=== PATIENT | male | born 1945 | race African-American/Black ===

== ENCOUNTER 2017-06-28 23:45 | Emergency (ER) | END 2017-06-29 06:28 | disposition home or self-care (01) ==

== ENCOUNTER 2017-07-09 14:45 | Emergency (ER) | END 2017-07-09 18:11 | disposition home or self-care (01) ==

== ENCOUNTER 2017-07-27 10:37 | Emergency (ER) | END 2017-07-27 16:56 | disposition home or self-care (01) ==

== ENCOUNTER 2018-05-07 10:33 | Emergency (ER) | payer OTHER ==
[~2018-05-07] VITALS: Ht 175.3 cm; Wt 85.0 kg
[2018-05-07 10:33] VITALS: Ht 175.3 cm; Wt 85.0 kg
[~2018-05-07 10:33] MED LIST: ALLO100T PO; NAPR-985 PO; OXYC40TA26 PO
[2018-05-07] MEDS ORDERED: HYDROCODONE/APAP (5/325) TAB PO ONE (12:00)
[2018-05-07] MEDS ORDERED: HYDROCODONE/APAP (10/325) TAB PO ONE ×3 (13:00→22:30)
--- NOTE | 2018-05-07 14:28 | ERD ---
ER Documentation Chief Complaint Chief Complaint Patient SUMAN with complaint of severe back pain MD at bedside for eval. HPI 72-year-old male with a history of chronic back pain, with spinal fusion surgery in the past, who presents with acute on chronic back pain as well as suicidal ideations. Patient states that his back pain is chronic and unchanged with no new neurologic deficits, however he has been feeling suicidal for the last several days, with thoughts of shooting himself in the head. He is currently not on any psychiatric medications. ROS All systems reviewed and are negative except as per history of present illness. Medications Home Meds Active Scripts Naproxen* (Naprosyn*) 500 Mg Tablet, 500 MG PO BID PRN for PAIN AND/OR INFLAMMATION, #30 TAB Prov:HUMBERTO MIGUEL MD 07/27/17 Reported Medications Allopurinol* (Allopurinol*) 100 Mg Tablet, 100 MG PO TID, TAB 07/27/17 Oxycodone Hcl* (Oxycontin*) 40 Mg Tab.er.12h, 40 MG PO Q12, TAB 07/27/17 Allergies Allergies: Coded Allergies: No Known Allergy (Unverified , 06/29/17) PMhx/Soc History of Surgery: Yes (multiple back surgeries) Anesthesia Reaction: No Hx Neurological Disorder: Yes (MUSCLE WEAKNESS W/C DEPENDENT) Hx Respiratory Disorders: No Hx Cardiac Disorders: Yes (HTN) Hx Psychiatric Problems: Yes (depression) Hx Miscellaneous Medical Probl: No (gout) Hx Alcohol Use: No Hx Substance Use: No Hx Tobacco Use: Yes Physical Exam Vitals Vital Signs Date Temp Pulse Resp B/P (MAP) Pulse Ox O2 O2 Flow FiO2 Time Delivery Rate 05/07/18 97.5 91 16 123/90 98 Room Air 12:14 (101) 05/07/18 98.3 98 20 138/86 98 10:33 (103) Physical Exam Const: No acute distress Head: Atraumatic Eyes: Normal Conjunctiva ENT: Normal External Ears, Nose and Mouth. Neck: Full range of motion. No meningismus. Resp: Clear to auscultation bilaterally Cardio: Regular rate and rhythm, no murmurs Abd: Soft, non tender, non distended. Normal bowel sounds Skin: No petechiae or rashes Back: No midline or flank tenderness, no step-off Ext: No cyanosis, or edema Neur: Awake and alert, strength 5 out of 5 in all extremity Psych: Normal Mood and Affect Result Diagram: 05/07/18 1106 05/07/18 1106 Results 24 hrs Laboratory Tests Test 05/07/18 11:06 05/07/18 13:30 White Blood Count 4.5 10^3/ul Red Blood Count 4.71 10^6/ul Hemoglobin 13.1 g/dl Hematocrit 42.8 % Mean Corpuscular Volume 90.9 fl Mean Corpuscular Hemoglobin 27.8 pg Mean Corpuscular Hemoglobin Concent 30.6 g/dl Red Cell Distribution Width 15.1 % Platelet Count 276 10^3/UL Mean Platelet Volume 10.3 fl Immature Granulocytes % 0.200 % Neutrophils % 49.9 % Lymphocytes % 34.1 % Monocytes % 9.8 % Eosinophils % 5.3 % Basophils % 0.7 % Nucleated Red Blood Cells % 0.0 /100WBC Immature Granulocytes # 0.010 10^3/ul Neutrophils # 2.2 10^3/ul Lymphocytes # 1.5 10^3/ul Monocytes # 0.4 10^3/ul Eosinophils # 0.2 10^3/ul Basophils # 0.0 10^3/ul Nucleated Red Blood Cells # 0.0 10^3/ul Sodium Level 144 mmol/L Potassium Level 3.4 mmol/L Chloride Level 105 mmol/L Carbon Dioxide Level 29 mmol/L Anion Gap 10 Blood Urea Nitrogen 15 mg/dl Creatinine 0.95 mg/dl Est Glomerular Filtrat Rate mL/min > 60 mL/min Glucose Level 111 mg/dl Calcium Level 9.8 mg/dl Total Bilirubin 0.0 mg/dl Direct Bilirubin 0.00 mg/dl Indirect Bilirubin 0.0 mg/dl Aspartate Amino Transf (AST/SGOT) 19 IU/L Alanine Aminotransferase (ALT/SGPT) < 6 IU/L Alkaline Phosphatase 59 IU/L Total Protein 7.7 g/dl Albumin 4.1 g/dl Globulin 3.60 g/dl Albumin/Globulin Ratio 1.13 Salicylates Level < 1.0 mg/dl Acetaminophen Level < 10.0 ug/ml Ethyl Alcohol Level < 10.0 mg/dl Urine Color YELLOW Urine Clarity CLEAR Urine pH 5.0 Urine Specific [place] 1.018 Urine Ketones NEGATIVE mg/dL Urine Nitrite NEGATIVE mg/dL Urine Bilirubin NEGATIVE mg/dL Urine Urobilinogen NEGATIVE mg/dL Urine Leukocyte Esterase NEGATIVE Johnny/ul Urine Microscopic RBC 3 /HPF Urine Microscopic WBC 0 /HPF Urine Hemoglobin 1+ mg/dL Urine Glucose NEGATIVE mg/dL Urine Total Protein NEGATIVE mg/dl Urine Opiates Screen Positive Urine Barbiturates Negative Urine Amphetamines Screen Negative Urine Benzodiazepines Screen Negative Urine Cocaine Screen Negative Urine Cannabinoids Negative Current Medications Medications Dose Sig/Rigoberto Start Time Status Last (Trade) Ordered Route PRN Stop Time Admin Dose Reason Admin 1 tab ONCE ONCE 05/07/18 DC 05/07/18 Acetaminophen PO 12:00 11:43 / 05/07/18 12:01 Hydrocodone Bitart ([place] (5/325)) 1 tab ONCE ONCE 05/07/18 DC 05/07/18 Acetaminophen PO 13:00 13:20 / 05/07/18 13:01 Hydrocodone Bitart ([place] (10/325)) Procedures/MDM 72-year-old male presents for evaluation of chronic back pain as well as suicidal ideations, #Back pain. Patient has no signs or symptoms concerning for an emergent cause of back pain such as cauda equina, epidural abscess, he has no history of trauma, and his pain appears to be at its baseline. We will treat symptomatically. #Suicidal ideations. Patient suicidal with endorse plan, will plan for psychiatric evaluation. Patient will be signed out to Dr. Gill pending psychiatry recommendations. At this point the patient is medically cleared. Departure Diagnosis: Primary Impression: Back pain Back pain location: low back pain Chronicity: unspecified Back pain laterality: unspecified Sciatica presence: without sciatica Qualified Codes: M54.5 - Low back pain Additional Impression: Suicidal ideation Condition: HUMBERTO Freeman MD May 07, 2018 14:28
--- NOTE | 2018-05-07 15:01 | PSY ---
Date/Time of Note Date/Time of Note DATE: 05/07/18 TIME: 17:59 Psychiatric Subjective Eval Consent Pt consented to telemedicine: Yes Subjective Evaluation Patient location: emergency Chief Complaint: Patient SUMAN with complaint of severe back pain MD at bedside for eval. Reason for consult: Psych eval History of present illness HPI 72 yo male with ho depression, bib self for a clear desire to kill himself with depression. Denies psychossi or drug use past Psych HX: + ho admits and suicide attempts PMHx: denies nkda Meds none MSE; cooperative casually groomed, depressed, organized, no delusions or avh +SI Imp; 72 yo male danger to self voluntary psych admit Medical history Problems Medical Problems: (1) Back pain Status: Acute (2) Back pain Status: Acute (3) Back pain Status: Acute (4) Chronic pain syndrome Status: Acute (5) Concussion syndrome Status: Acute (6) Scalp contusion Status: Acute (7) Suicidal ideation Status: Acute Allergies: Coded Allergies: No Known Allergy (Unverified , 06/29/17) Psychiatric Objective Eval Mental Status Examination: Laboratory Results Laboratory Tests Test 05/07/18 11:06 05/07/18 13:30 White Blood Count 4.5 10^3/ul Red Blood Count 4.71 10^6/ul Hemoglobin 13.1 g/dl Hematocrit 42.8 % Mean Corpuscular Volume 90.9 fl Mean Corpuscular Hemoglobin 27.8 pg Mean Corpuscular Hemoglobin Concent 30.6 g/dl Red Cell Distribution Width 15.1 % Platelet Count 276 10^3/UL Mean Platelet Volume 10.3 fl Immature Granulocytes % 0.200 % Neutrophils % 49.9 % Lymphocytes % 34.1 % Monocytes % 9.8 % Eosinophils % 5.3 % Basophils % 0.7 % Nucleated Red Blood Cells % 0.0 /100WBC Immature Granulocytes # 0.010 10^3/ul Neutrophils # 2.2 10^3/ul Lymphocytes # 1.5 10^3/ul Monocytes # 0.4 10^3/ul Eosinophils # 0.2 10^3/ul Basophils # 0.0 10^3/ul Nucleated Red Blood Cells # 0.0 10^3/ul Sodium Level 144 mmol/L Potassium Level 3.4 mmol/L Chloride Level 105 mmol/L Carbon Dioxide Level 29 mmol/L Anion Gap 10 Blood Urea Nitrogen 15 mg/dl Creatinine 0.95 mg/dl Est Glomerular Filtrat Rate mL/min > 60 mL/min Glucose Level 111 mg/dl Calcium Level 9.8 mg/dl Total Bilirubin 0.0 mg/dl Direct Bilirubin 0.00 mg/dl Indirect Bilirubin 0.0 mg/dl Aspartate Amino Transf (AST/SGOT) 19 IU/L Alanine Aminotransferase (ALT/SGPT) < 6 IU/L Alkaline Phosphatase 59 IU/L Total Protein 7.7 g/dl Albumin 4.1 g/dl Globulin 3.60 g/dl Albumin/Globulin Ratio 1.13 Salicylates Level < 1.0 mg/dl Acetaminophen Level < 10.0 ug/ml Ethyl Alcohol Level < 10.0 mg/dl Urine Color YELLOW Urine Clarity CLEAR Urine pH 5.0 Urine Specific [place] 1.018 Urine Ketones NEGATIVE mg/dL Urine Nitrite NEGATIVE mg/dL Urine Bilirubin NEGATIVE mg/dL Urine Urobilinogen NEGATIVE mg/dL Urine Leukocyte Esterase NEGATIVE Johnny/ul Urine Microscopic RBC 3 /HPF Urine Microscopic WBC 0 /HPF Urine Hemoglobin 1+ mg/dL Urine Glucose NEGATIVE mg/dL Urine Total Protein NEGATIVE mg/dl Urine Opiates Screen Positive Urine Barbiturates Negative Urine Amphetamines Screen Negative Urine Benzodiazepines Screen Negative Urine Cocaine Screen Negative Urine Cannabinoids Negative Assessment and Plan Recommendation/Plan Multiple antipsychotics: Yes Discharge Disposition: Psychiatric inpatient Legal Status: Voluntary MARLA IRWIN May 07, 2018 15:01
--- NOTE | 2018-05-07 18:06 | PSY ---
Date/Time of Note Date/Time of Note DATE: 05/07/18 TIME: 21:05 Psychiatric Subjective Eval Consent Pt consented to telemedicine: Yes Subjective Evaluation Patient location: emergency Chief Complaint: Patient SUMAN with complaint of severe back pain MD at bedside for eval. Reason for consult: Psych eval History of present illness HPI: 72 yo male with ho depression, bib self for a clear desire to kill himself with depression. Denies psychosis or drug use. MD was asked to see pt a few hours after first eval. Pt reports that he still has si but since paramedics did not bring his wheelchair it will be difficult to place him so he wants to go home. past Psych HX: + ho admits and suicide attempts PMHx: denies nkda Meds none MSE; cooperative casually groomed, depressed, organized, no delusions or avh +SI Imp; 72 yo male danger to self voluntary psych admit or [id number], assist pt with obtaining wheelchair Medical history Problems Medical Problems: (1) Back pain Status: Acute (2) Back pain Status: Acute (3) Back pain Status: Acute (4) Chronic pain syndrome Status: Acute (5) Concussion syndrome Status: Acute (6) Scalp contusion Status: Acute (7) Suicidal ideation Status: Acute Allergies: Coded Allergies: No Known Allergy (Unverified , 06/29/17) Psychiatric Objective Eval Mental Status Examination: Laboratory Results Laboratory Tests Test 05/07/18 11:06 05/07/18 13:30 White Blood Count 4.5 10^3/ul Red Blood Count 4.71 10^6/ul Hemoglobin 13.1 g/dl Hematocrit 42.8 % Mean Corpuscular Volume 90.9 fl Mean Corpuscular Hemoglobin 27.8 pg Mean Corpuscular Hemoglobin Concent 30.6 g/dl Red Cell Distribution Width 15.1 % Platelet Count 276 10^3/UL Mean Platelet Volume 10.3 fl Immature Granulocytes % 0.200 % Neutrophils % 49.9 % Lymphocytes % 34.1 % Monocytes % 9.8 % Eosinophils % 5.3 % Basophils % 0.7 % Nucleated Red Blood Cells % 0.0 /100WBC Immature Granulocytes # 0.010 10^3/ul Neutrophils # 2.2 10^3/ul Lymphocytes # 1.5 10^3/ul Monocytes # 0.4 10^3/ul Eosinophils # 0.2 10^3/ul Basophils # 0.0 10^3/ul Nucleated Red Blood Cells # 0.0 10^3/ul Sodium Level 144 mmol/L Potassium Level 3.4 mmol/L Chloride Level 105 mmol/L Carbon Dioxide Level 29 mmol/L Anion Gap 10 Blood Urea Nitrogen 15 mg/dl Creatinine 0.95 mg/dl Est Glomerular Filtrat Rate mL/min > 60 mL/min Glucose Level 111 mg/dl Calcium Level 9.8 mg/dl Total Bilirubin 0.0 mg/dl Direct Bilirubin 0.00 mg/dl Indirect Bilirubin 0.0 mg/dl Aspartate Amino Transf (AST/SGOT) 19 IU/L Alanine Aminotransferase (ALT/SGPT) < 6 IU/L Alkaline Phosphatase 59 IU/L Total Protein 7.7 g/dl Albumin 4.1 g/dl Globulin 3.60 g/dl Albumin/Globulin Ratio 1.13 Salicylates Level < 1.0 mg/dl Acetaminophen Level < 10.0 ug/ml Ethyl Alcohol Level < 10.0 mg/dl Urine Color YELLOW Urine Clarity CLEAR Urine pH 5.0 Urine Specific [place] 1.018 Urine Ketones NEGATIVE mg/dL Urine Nitrite NEGATIVE mg/dL Urine Bilirubin NEGATIVE mg/dL Urine Urobilinogen NEGATIVE mg/dL Urine Leukocyte Esterase NEGATIVE Johnny/ul Urine Microscopic RBC 3 /HPF Urine Microscopic WBC 0 /HPF Urine Hemoglobin 1+ mg/dL Urine Glucose NEGATIVE mg/dL Urine Total Protein NEGATIVE mg/dl Urine Opiates Screen Positive Urine Barbiturates Negative Urine Amphetamines Screen Negative Urine Benzodiazepines Screen Negative Urine Cocaine Screen Negative Urine Cannabinoids Negative Assessment and Plan Recommendation/Plan Multiple antipsychotics: Yes Discharge Disposition: Psychiatric inpatient Legal Status: Voluntary ALIDAMARLA HIGHTOWER May 07, 2018 18:06
[2018-05-08] MEDS ORDERED: HYDROCODONE/APAP (10/325) TAB PO ONE ×2 (04:30→09:30)
--- NOTE | 2018-05-08 05:04 | EN ---
Date/Time of Note Date/Time of Note DATE: 05/08/18 TIME: 05:03 ER Progress Note Psychiatric Observation Note: Indication: Suicidal ideation Duration: Greater than 18 hours Family history: As documented in original HPI The patient was observed with serial exams over the above timeframe. The patient continued to be well-appearing, and observation continued without complication. All other needs have been met during emergency department stay. Routine psychiatric medications ordered: Not requested by telemetry medicine psychiatry Hold status: No hold, voluntary status Placement status: The patient is awaiting insurance care plan and hospice case manager to provide a wheelchair. He then can be accepted at psychiatric facility. JULIA MCCARTNEY MD May 08, 2018 05:04
--- NOTE | 2018-05-08 10:01 | PSY ---
Date/Time of Note Date/Time of Note DATE: 05/08/18 TIME: 12:56 Psychiatric Subjective Eval Consent Pt consented to telemedicine: Yes Subjective Evaluation Patient location: emergency Chief Complaint: Patient SUMAN with complaint of severe back pain MD at bedside for eval. Reason for consult: Psych eval History of present illness HPI 72 yo male with ho depression, bib self yesterday for a desire to kill himself with depression. Denied psychosis or drug use. Was seen by this MD twice yesterday as several hours after coming to ED he requested to leave due to not having wheelchair. MD spoke with pt again today. He reports he is feeling better, no depression or Si. Reports that one reason he is feeling better is that roommate is no loner there adn it was the roommate who was bothering him. past Psych HX: + ho admits and suicide attempts PMHx: denies nkda Meds none MSE; cooperative casually groomed, mildky, organized, no delusions or avh deniesSI Imp; 72 yo male came in with danger to self, now resolved. Pt could be discharged back to board and care if 1) we could obtain parallel hx confirming this is consistent with pt's hx (i.e., to have SI then next day no si adn that this fluctuation in si is normal for pt, 2) board and care willing to take pt back; 3) pt has appt with a psychiatrist within a day, also consider mobile crisis Medical history Problems Medical Problems: (1) Back pain Status: Acute (2) Back pain Status: Acute (3) Back pain Status: Acute (4) Chronic pain syndrome Status: Acute (5) Concussion syndrome Status: Acute (6) Scalp contusion Status: Acute (7) Suicidal ideation Status: Acute Allergies: Coded Allergies: No Known Allergy (Unverified , 06/29/17) Psychiatric Objective Eval Mental Status Examination: Laboratory Results Laboratory Tests Test 05/07/18 11:06 05/07/18 13:30 White Blood Count 4.5 10^3/ul Red Blood Count 4.71 10^6/ul Hemoglobin 13.1 g/dl Hematocrit 42.8 % Mean Corpuscular Volume 90.9 fl Mean Corpuscular Hemoglobin 27.8 pg Mean Corpuscular Hemoglobin Concent 30.6 g/dl Red Cell Distribution Width 15.1 % Platelet Count 276 10^3/UL Mean Platelet Volume 10.3 fl Immature Granulocytes % 0.200 % Neutrophils % 49.9 % Lymphocytes % 34.1 % Monocytes % 9.8 % Eosinophils % 5.3 % Basophils % 0.7 % Nucleated Red Blood Cells % 0.0 /100WBC Immature Granulocytes # 0.010 10^3/ul Neutrophils # 2.2 10^3/ul Lymphocytes # 1.5 10^3/ul Monocytes # 0.4 10^3/ul Eosinophils # 0.2 10^3/ul Basophils # 0.0 10^3/ul Nucleated Red Blood Cells # 0.0 10^3/ul Sodium Level 144 mmol/L Potassium Level 3.4 mmol/L Chloride Level 105 mmol/L Carbon Dioxide Level 29 mmol/L Anion Gap 10 Blood Urea Nitrogen 15 mg/dl Creatinine 0.95 mg/dl Est Glomerular Filtrat Rate mL/min > 60 mL/min Glucose Level 111 mg/dl Calcium Level 9.8 mg/dl Total Bilirubin 0.0 mg/dl Direct Bilirubin 0.00 mg/dl Indirect Bilirubin 0.0 mg/dl Aspartate Amino Transf (AST/SGOT) 19 IU/L Alanine Aminotransferase (ALT/SGPT) < 6 IU/L Alkaline Phosphatase 59 IU/L Total Protein 7.7 g/dl Albumin 4.1 g/dl Globulin 3.60 g/dl Albumin/Globulin Ratio 1.13 Salicylates Level < 1.0 mg/dl Acetaminophen Level < 10.0 ug/ml Ethyl Alcohol Level < 10.0 mg/dl Urine Color YELLOW Urine Clarity CLEAR Urine pH 5.0 Urine Specific [place] 1.018 Urine Ketones NEGATIVE mg/dL Urine Nitrite NEGATIVE mg/dL Urine Bilirubin NEGATIVE mg/dL Urine Urobilinogen NEGATIVE mg/dL Urine Leukocyte Esterase NEGATIVE Johnny/ul Urine Microscopic RBC 3 /HPF Urine Microscopic WBC 0 /HPF Urine Hemoglobin 1+ mg/dL Urine Glucose NEGATIVE mg/dL Urine Total Protein NEGATIVE mg/dl Urine Opiates Screen Positive Urine Barbiturates Negative Urine Amphetamines Screen Negative Urine Benzodiazepines Screen Negative Urine Cocaine Screen Negative Urine Cannabinoids Negative Assessment and Plan Recommendation/Plan Multiple antipsychotics: Yes Discharge Disposition: Other Legal Status: Voluntary ALIDAMARLA HIGHTOWER May 08, 2018 10:01
--- NOTE | 2018-05-08 10:48 | EN ---
Date/Time of Note Date/Time of Note DATE: 05/08/18 TIME: 10:39 ER Progress Note Psychiatric observation note: Indication: Suicidal ideations. Duration: Greater than 24 hours Family history: As documented in the original HPI. Patient's behavioral symptoms have stabilized while in the department. Feels better and denies suicidal or homicidal ideations. Reevaluated by psychiatry, . Patient is no longer a threat to himself or others and can be discharged back to his boarding care facility. Outpatient, urgent, behavioral health follow-up will be arranged by building services supervisor. After careful evaluation and observation the patient seems capable of caring for himself and pose no to himself or others. A plan for follow up has been arranged and he seems capable of the feeling that plan. Stable for discharge with precautionary instructions and outpatient follow-up as counseled. GABBY HERNANDEZ MD May 08, 2018 10:48
[2018-05-08] MEDS ORDERED: SERT25TA PO (12:01)
[2018-05-08 12:33] VITALS: BP 140/81; PULSE 71; RESP 17
== END 2018-05-08 13:11 | disposition home or self-care (01) ==
LOC: E/R 10:33
DX: M54.5 Low back pain (principal); R45.851 Suicidal ideations; R40.2252 Coma scale, best verbal response, oriented, at arrival to emergency department; R40.2362 Coma scale, best motor response, obeys commands, at arrival to emergency department; R40.2142 Coma scale, eyes open, spontaneous, at arrival to emergency department; I10 Essential (primary) hypertension; Z87.891 Personal history of nicotine dependence
CPT/HCPCS: 80053; 80307; 81001; 85025; 99283

== ENCOUNTER 2018-06-06 17:57 | Emergency (ER) | payer OTHER ==
[~2018-06-06] VITALS: Ht 172.7 cm; Wt 72.0 kg
[~2018-06-06 17:57] MED LIST changes: +SERT25TA PO
[2018-06-06 18:05] VITALS: Ht 172.7 cm; Wt 72.0 kg
[2018-06-06] MEDS ORDERED: HYDROCODONE/APAP (10/325) TAB PO ONE (18:30)
--- NOTE | 2018-06-06 18:35 | ERD ---
ER Documentation Chief Complaint Chief Complaint threatning to harm residents at facility HPI This is a 72-year-old male who says he is here for low back pain. The patient has had extensive low back surgery and C-spine surgery. He states that he slipped off of his edge of his walker and fell on the floor and twisted his low back. Says he has sharp pain in the low back that is chronic and is worse now. 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 The patient tells me that this is not true and that he was just standing up for his rights. He is denying being suicidal or homicidal. He has no radiculopathy down the legs no loss of bowel or bladder no saddle anesthesia no weakness in the legs ROS All systems reviewed and are negative except as per history of present illness. Medications Home Meds Active Scripts Sertraline Hcl* (Zoloft*) 25 Mg Tablet, 25 MG PO DAILY, #14 TAB Prov:GABBY HERNANDEZ MD 05/08/18 Naproxen* (Naprosyn*) 500 Mg Tablet, 500 MG PO BID PRN for PAIN AND/OR INFLAM MATION, #30 TAB Prov:HUMBERTO MIGUEL MD 07/27/17 Reported Medications Allopurinol* (Allopurinol*) 100 Mg Tablet, 100 MG PO TID, TAB 07/27/17 Oxycodone Hcl* (Oxycontin*) 40 Mg Tab.er.12h, 40 MG PO Q12, TAB 07/27/17 Allergies Allergies: Coded Allergies: No Known Allergy (Unverified , 06/29/17) PMhx/Soc History of Surgery: Yes (multiple back surgeries) Anesthesia Reaction: No Hx Neurological Disorder: Yes (MUSCLE WEAKNESS W/C DEPENDENT) Hx Respiratory Disorders: No Hx Cardiac Disorders: Yes (HTN) Hx Psychiatric Problems: Yes (depression) Hx Miscellaneous Medical Probl: No (gout) Hx Alcohol Use: No Hx Substance Use: No Hx Tobacco Use: Yes FmHx Family History: No coronary disease Physical Exam Vitals Vital Signs Date Temp Pulse Resp B/P (MAP) Pulse Ox O2 O2 Flow FiO2 Time Delivery Rate 06/06/18 98.2 134 22 214/113 99 18:05 (146) Physical Exam Const: Well-developed, well-nourished Head: Atraumatic, normocephalic Eyes: Normal Conjunctiva, PERRLA, EOMI, normal sclera, no nystagmus ENT: Normal External Ears, Nose and Mouth, moist mucus membranes. Neck: Full range of motion. No meningismus, no lymphadenopathy. Resp: Clear to auscultation bilaterally, no wheezing, rhonchi, rales Cardio: Regular rate and rhythm, no murmurs, S1 S2 present Abd: Soft, non tender x 4, non distended. Normal bowel sounds, no guarding or rebound, no pulsitile abdominal masses or bruits Skin: No petechiae or rashes, no ecchymosis , no maculopapular rash Back: Bilateral lumbar paraspinal tenderness] Ext: No cyanosis, or edema, FROM x 4, normal inspection, neurovascularly intact x 4 Neur: Awake and alert, STR 5/5 x 4, sensation intact x 4, no focal findings, cerebellum intact Psych: Normal Mood and Affect Results 24 hrs Laboratory Tests Test 06/06/18 19:53 Urine Color YELLOW Urine Clarity CLEAR Urine pH 6.0 Urine Specific [place] 1.019 Urine Ketones 1+ mg/dL Urine Nitrite NEGATIVE mg/dL Urine Bilirubin NEGATIVE mg/dL Urine Urobilinogen 1+ mg/dL Urine Leukocyte Esterase NEGATIVE Johnny/ul Urine Microscopic RBC 13 /HPF Urine Microscopic WBC 1 /HPF Urine Squamous Epithelial Cells FEW /HPF Urine Mucus FEW /HPF Urine Hemoglobin 1+ mg/dL Urine Glucose NEGATIVE mg/dL Urine Total Protein NEGATIVE mg/dl Current Medications Medications Dose Sig/Rigoberto Start Time Status Last (Trade) Ordered Route PRN Stop Time Admin Dose Reason Admin 2 tab ONCE ONCE 06/06/18 DC 06/06/18 Acetaminophen PO 18:30 18:37 / 06/06/18 18:31 Hydrocodone Bitart ([facility] ()) Procedures/MDM The patient will be evaluated by telemetry psychiatry to rule out any homicidal ideations MR #: [id number] DOS: 06/06/18 1829 Ordering MD: DONALD LINN DO Location: E/R Room/Bed: PROCEDURE: XR Lumbar Spine. CLINICAL INDICATION: Low back pain. Trauma TECHNIQUE: AP, lateral and cone-down lateral views of the lumbar spine were obtained. 3 images. COMPARISON: CT 06/29/2017 FINDINGS: The patient has undergone extensive surgery from L2-L5. Posterior decompression, posterior stabilization, and L3-4 and L4-5 discectomy and fusion of been performed. No acute traumatic abnormality is identified. There is extremely severe degenerative change at the L1-2 level. IMPRESSION: 1. No visible acute traumatic abnormality of the lumbar spine. 2. Extensive previous surgery. 3. Severe degenerative disc disease at L1-2. RPTAT:AAJJ Physician Aaron Date Time Electronically viewed and signed by Physician Aaron on 06/06/2018 19:20 GW/ CC: DONALD LINN DO [id number] Spoke with psychiatrist on the phone he states the patient can be safely discharged with Zyprexa 10 mg nightly and recommended getting a urinalysis to rule out UTI. The patient does not have a UTI. Will be discharged home with Zyprexa Departure Diagnosis: Primary Impression: Back pain Back pain location: low back pain Chronicity: acute Back pain laterality: bilateral Sciatica presence: without sciatica Qualified Codes: M54.5 - L ow back pain Condition: Stable DONALD LINN DO Jun 06, 2018 18:35
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
[2018-06-06] MEDS ORDERED: HYDR-3980 PO (20:17)
[2018-06-06] MEDS ORDERED: OLAN10TA7 PO (20:17)
[2018-06-07] MEDS ORDERED: ACETAMINOPHEN 500 MG TAB PO STA (08:30)
[2018-06-07 11:14] VITALS: BP 137/65; PULSE 74; RESP 19
== END 2018-06-07 11:18 | disposition home or self-care (01) ==
LOC: E/R 17:57
DX: M54.5 Low back pain (principal); I10 Essential (primary) hypertension; Z87.891 Personal history of nicotine dependence
CPT/HCPCS: 72100; 81001